=== PATIENT | male | born 1965 | race Caucasian/White ===

== ENCOUNTER 2022-03-14 16:53 | Inpatient (IN) | payer OTHER ==
[2022-03-14] MEDS ORDERED: SODIUM CHLORIDE 0.9% 1,000 ML IV STA (17:01)
[2022-03-14] MEDS ORDERED: ASPIRIN 81 MG PO STA ×2 (17:01→17:26)
[2022-03-14] MEDS ORDERED: LORazepam 2 MG/ML INJ IV STA (17:10)
[2022-03-14] MEDS ORDERED: LIDOCAINE 2% SYG (PF) 100 MG/5 ML IV ONE (17:10)
--- NOTE | 2022-03-14 17:33 | ED ---
Chest Pain HPI - General Source: patient Mode of arrival: ambulatory Limitations: no limitations <Raisa Chaidez - Last Filed: 03/14/22 17:31> <Eleazar Rueda - Last Filed: 03/14/22 17:48> - General Chief Complaint: Chest Pain Stated Complaint: Chest pain,arm numb Time Seen by Provider: 03/14/22 17:01 - History of Present Illness Initial Comments: Patient is a 57-year-old male who presents to the emergency department with a chief complaint of chest pain. Patient states pain started while traveling approximately one hour ago. Describes pain as an aching in the center of his chest with numbness down his left arm. While obtaining HPI EKG was obtained which was evaluated by me and showed evidence of vtach. Patient was then moved to and care was then given to Dr. Rueda. (Raisa Chaidez) - Related Data Home Medications Medication Instructions Recorded Confirmed Lisinopril-Hctz 20-25 mg 1 each PO DAILY 09/14/13 09/16/13 [Zestoretic 20-25] Previous Rx's Medication Instructions Recorded HYDROcodone/APAP 7.5-325MG [[place] 1 - 2 each PO Q6HR PRN #40 tab 09/16/13 7.5] Allergies Allergy/AdvReac Type Severity Reaction Status Date / Time No Known Allergies Allergy Verified 03/14/22 16:59 Review of Systems ROS Other: All systems not noted in ROS Statement are negative. <Raisa Cahidez - Last Filed: 03/14/22 17:31> ROS Other: All systems not noted in ROS Statement are negative. <Eleazar Rueda - Last Filed: 03/14/22 17:48> ROS Statement: Those systems with pertinent positive or pertinent negative responses have been documented in the HPI. EKG Findings - EKG Results: EKG: interpreted by ERMD (EKG showed a wide complex tachycardia rate 244 QRS duration 159 QT/QTc 249/356 a bundle-branch block pattern ST elevation in the anterolateral leads) <Eleazar Rueda - Last Filed: 03/14/22 17:48> Past Medical History Past Medical History: Hypertension History of Any Multi-Drug Resistant Organisms: None Reported Past Surgical History: Cardiac Valve Replacement Additional Past Surgical History / Comment(s): AGE D- VALVE REPLACEMENT Past Anesthesia/Blood Transfusion Reactions: No Reported Reaction Past Psychological History: No Psychological Hx Reported Smoking Status: Current every day smoker Past Alcohol Use History: Daily Past Drug Use History: None Reported <Raisa Chaidez - Last Filed: 03/14/22 17:31> General Exam Limitations: no limitations <Raisa Chaidez - Last Filed: 03/14/22 17:31> General appearance: alert, anxious Head exam: Present: atraumatic, normocephalic, normal inspection Eye exam: Present: normal appearance, PERRL, EOMI. Absent: scleral icterus, conjunctival injection, periorbital swelling ENT exam: Present: normal exam, mucous membranes moist Neck exam: Present: normal inspection, full ROM, other (No stridor JVD or bruits). Absent: tenderness, meningismus, lymphadenopathy Respiratory exam: Present: decreased breath sounds. Absent: respiratory dist ress, wheezes, rales, rhonchi, stridor Cardiovascular Exam: Present: tachycardia. Absent: systolic murmur, diastolic murmur, rubs, gallop, clicks GI/Abdominal exam: Present: soft, normal bowel sounds. Absent: distended, tenderness, guarding, rebound, rigid Extremities exam: Present: normal inspection, full ROM, normal capillary refill. Absent: tenderness, pedal edema, joint swelling, calf tenderness Back exam: Present: normal inspection Neurological exam: Present: alert, oriented X3, CN II-XII intact Psychiatric exam: Present: normal affect, normal mood Skin exam: Present: warm, dry, intact, normal color. Absent: rash <Eleazar Rueda - Last Filed: 03/14/22 17:48> - General Exam Comments Initial Comments: This a well-developed asthenic appearing male who is awake alert oriented 4 (Eleazar Rueda) Course <Eleazar Rueda - Last Filed: 03/14/22 17:48> Vital Signs 03/14/22 03/14/22 16:57 17:29 Temperature 97.6 F Pulse Rate 56 L 112 H Respiratory 22 18 Rate Blood Pressure 99/78 148/110 O2 Sat by Pulse 92 L 95 Oximetry - Reevaluation(s) Reevaluation #1: 03/14/22 17:44 Post chemical conversion showed a sinus tachycardia as read by me as well as the initial EKG rate 109. Interval 196 QRS duration 159 QT since QTC 320/392 left atrial enlargement right bundle-branch block left anterior fascicular block LVH evidence of septal changes which appear to be consistent with ST elevation. (Eleazar Rueda) Chest Pain [facility] <Eleazar Rueda - Last Filed: 03/14/22 17:48> - [facility] Medical decision m[age]-year-old male with a history of heart valve surgery many years ago who was shoveling snow around 2:30 this afternoon he started developing 4/10 severity chest pain retrosternal nonradiating some shortness of breath with it. He was brought into the emergency department by private vehicle a tree as supposedly had a sinus rhythm normal heart rate but upon coming back to the department after EKG was done was found have a heart rate of 244 bpm and appeared to be a Y complex tachycardia. Patient maintained his mentation is awake alert with a blood pressure in the mid to high 90s systolic.. Minimal chest discomfort. He has a former smoker he does have a history of COPD he states. Patient was given 100 mg of IV lidocaine with conversion to a much improved rhythm sinus tachycardia rate of 109 evidence a left atrial enlargement right bundle-branch block left anterior fascicular block evidence of LVH evidence of septal changes STEMI considered. I did discuss case with Dr. Stanton a STEMI was called. The Director Of Special Services is in route. Patient is awake and alert at this time no chest pain no shortness of breath. Labs are pending. My initial examination the patient is awake alert oriented 4 heart rate was tachycardic as above. Lung sounds slightly diminished bilaterally abdomen soft nontender no pulsatile masses extremity breast laterally present and symmetric. Chest x-ray was reviewed by me showing evidence of acute processes. (Eleazar Rueda) Critical Care Time Critical Care Time: Yes Total Critical Care Time: 35 <Eleazar Rueda - Last Filed: 03/14/22 17:48> Critical Care Time: Total care, the initial presentation with my own history and physical examination the patient monitoring the patient. The chemical cardioversion. Multiple reevaluation the patient response to therapy discussion with Dr. Stanton from cardiology discussion with Dr. Hdez. Attempts to review old charting. Documentation the above and initial admission orders (Eleazar Rueda) Disposition <Raisa Chaidez - Last Filed: 03/14/22 17:31> Decision Date: 03/14/22 Decision Time: 17:48 <Eleazar Rueda - Last Filed: 03/14/22 17:48> Clinical Impression: ST elevation myocardial infarction (STEMI), Wide-complex tachycardia, Chest pain Disposition: ADMITTED IP TO THIS HOSP Condition: Fair Referrals: None,Stated [REFERRING] - 1-2 days
[2022-03-14 17:40] LABS: Albumin 4.4 g/dL (3.5-5.0); Calcium 9.3 mg/dL (8.4-10.2); Magnesium 1.7 mg/dL (1.6-2.3); Potassium 3.8 mmol/L (3.5-5.1); Total Bilirubin 0.5 mg/dL (0.2-1.3); Total Protein 6.8 g/dL (6.3-8.2)
--- NOTE | 2022-03-14 17:40 | XR ---
EXAMINATION TYPE: XR chest 1V portable DATE OF EXAM: 03/14/2022 Comparison: None Clinical History: 57-year-old male Chest Pain Findings: Heart upper limits of normal in size. Atherosclerotic arch calcifications. Hyperinflation. Mild stran dy atelectasis right base. No adrian consolidation or pleural effusion. Impression: Borderline heart size. Possible underlying COPD. Otherwise, no definite acute process.
[2022-03-14] MEDS ORDERED: HEPARIN SODIUM 1,000 UN/ML (10ML VL) IVP STA (17:44)
[2022-03-14] MEDS ORDERED: HEPARIN SODIUM 1,000 UN/ML (10ML VL) ONE (17:51)
[2022-03-14] MEDS ORDERED: fentaNYL (PF) 50 MCG/ML 2 ML AMP ONE (17:51)
[2022-03-14] MEDS ORDERED: VERAPAMIL 2.5 MG/ML 2 ML AMP ONE (17:51)
[2022-03-14 17:56] LABS: Basophils # (A) 0.2 k/uL (0-0.2); Basophils % (A) 2 %; Eosinophils # (A) 0.2 k/uL (0-0.7); Eosinophils % (A) 2 %; HCT 47.9 % (39.0-53.0); HGB 15.9 gm/dL (13.0-17.5); Lymphocytes # (A) 2.8 k/uL (1.0-4.8); Lymphocytes % (A) 28 %; MCH 30.5 pg (25.0-35.0); MCHC 33.2 g/dL (31.0-37.0); MCV 91.7 fL (80.0-100.0); Mean Platelet Volume 7.4; Monocytes # (A) 0.6 k/uL (0-1.0); Monocytes % (A) 6 %; Neutrophils # (A) 5.9 k/uL (1.3-7.7); Neutrophils % (A) 60 %; Platelet Count 253 k/uL (150-450); RBC 5.22 m/uL (4.30-5.90); RDW 13.7 % (11.5-15.5); WBC 9.8 k/uL (3.8-10.6)
[2022-03-14 18:01] LABS: INR 0.9 (<1.2); Partial Thromboplastin Time 28.3 sec (22.0-30.0)
[2022-03-14] MEDS ORDERED: fentaNYL (PF) 50 MCG/ML 2 ML AMP IV ONE (18:02)
[2022-03-14] MEDS ORDERED: LIDOCAINE 1% INJ 10MG/ML (30 ML VIAL-PF) SQ ONE (18:02)
[2022-03-14] MEDS ORDERED: VERAPAMIL SYRINGE (5 MG/10 ML) INTRAARTER ONE (18:04)
[2022-03-14] MEDS ORDERED: SODIUM CHLORIDE 0.9% 500 ML 500 ML IV ONE (18:06)
[2022-03-14] MEDS ORDERED: METOPROLOL TARTRATE 5 MG/5 ML VIAL IVP ONE (18:07)
[2022-03-14] MEDS: METOPROLOL TARTRATE 5 MG/5 ML VIAL IVP ONE ×2 (18:08→18:16)
[2022-03-14] MEDS ORDERED: HEPARIN SODIUM 1,000 UN/ML (10ML VL) IV ONE (18:09)
[2022-03-14] MEDS ORDERED: IOPAMIDOL-370 125ML BTL INJ ONE (18:16)
[2022-03-14] MEDS ORDERED: DEXTROSE 5% IN WATER 100 ML with AMIODARONE 150 MG IV ONE (18:16)
[2022-03-14] MEDS ORDERED: RX INFO: IV CONTRAST WAS GIVEN 1 EACH MISC MISCELLANE PRN (18:25)
[2022-03-14] MEDS ORDERED: AMIODARONE 360 MG in DEXTROSE 5% IN WATER 200 ML IV ONE ×2 (18:28)
[2022-03-14] MEDS ORDERED: SODIUM CHLORIDE 0.9% 1,000 ML IV SCH (18:30)
--- NOTE | 2022-03-14 18:34 | P.CARDCATH ---
Date of Procedure: 03/14/22 Description of Procedure: Cardiac Catheterization: The patient is a 57-year-old male who presented with episode of chest discomfort, was found to have wide complex tachycardia consistent with ventricular tachycardia that resolved after receiving IV lidocaine, his underlying rhythm was right bundle branch block with ST segment changes of unclear duration. Patient has a prior history of valvular surgery at the age of 5, details unclear. Recommendations were made regarding cardiac catheterization, the risks and the complications were discussed with the patient who is in full understanding and agreement. Procedure Description: Patient was brought to manager lab in fasting semi-sedated state after receiving Fentanyl and Benadryl achieiving moderate conscious sedated state. Using Xylocaine Anesthesia and Seldinger technique, a 6-Ivorian sheath was introduced in the right radial artery . Subsequently, selective coronary angiography was performed using a 5-Ivorian 3.5 bend Black catheter. Multiple views of the coronary artery including hemiaxial views were obtained. The 5-Ivorian pigatail catheter was used to cross the aortic valve and LVEDP was calculated. Following that, catheter and sheath were removed. Hemostasis was obtained with deployment of TR band . There was no immediate complication. Patient was returned to room in stable condition. Of note, the patient received a total of additional 2000 units of intravenous heparin as well as intra-arterial verapamil. Findings: Left main: This is a short size vessel, bifurcating to LAD and left circumflex, left main has no high-grade stenosis LAD: This is a large size vessel, gives rise to a large diagonal branch very proximally, the second diagonal branch is smaller in caliber, the LAD and its branches have no evidence of high-grade stenosis. The vessel is very tortuous in the proximal segment. Left circumflex: This is a large nondominant vessel giving rise to 3 obtuse marginal branch, the first one is the largest, the left circumflex and its branches have no evidence of high-grade stenosis RCA: This is a large dominant vessel, tortuous, bifurcating distally into PDA and PLV, the RCA and its branches have no evidence of high-grade stenosis Left Ventriculogram: Performed in the 30 TELLO view revealed normal size and function, ejection fraction 60% Hemodynamics: There is no gradient across the aortic valve , LVEDP was 5-10 mmHg Conclusion: 1. No evidence of obstructive CAD 2. Right dominance 3. Normal left ventricle size and systolic function 4. Normal LVEDP Recommendations: I have recommended to start beta melba and amiodarone for now, obtain an echocardiogram with Doppler. Patient will need to be evaluated regarding his arrhythmia. The findings and the recommendations were discussed with the patient and and he is in understanding and agreement Duration of sedation is 20 minutes.
--- NOTE | 2022-03-14 18:40 | P.CRDCN ---
History of Present Illness Consult date: 03/14/22 History of present illness: History of Present Illness: The patient is a 57-year-old male who presents on his birthday with symptoms of chest discomfort that occurred while he was shoveling snow. He had associated dizziness and shortness of breath. He presented to the emergency room and was noted to be in wide-complex tachycardia, sustained ventricle tachycardia that resolved after receiving IV lidocaine. Subsequently to that he was in sinus mechanism with right bundle branch block and ST segment changes of unclear duration. Because of his presentation recommendations were made regarding cardiac catheterization. The patient has a prior history of valvular disease according to him, underwent surgery as a child. He denies any documented history of obstructive CAD, CHF or arrhythmia. He has no chest discomfort on a regular basis. He has some dyspnea on exertion but no typical dizziness or syncope. He has no PND, orthopnea or peripheral edema. He has a prior history of alcohol intake but he stopped a months ago according to him and he has a prior history of hypertension but he is not taking any medication at this time. He is a smoker, nondiabetic. Medications: None at this time Review of Systems: Respiratory: He has some dyspnea on exertion and a history of chronic tobacco use GI: No nausea or vomiting . No history of peptic ulcer disease. No recent GI bleed. : No hematuria or dysuria. Nervous System: No stroke or seizure. Physical Examination: 57-year-old male, alert and oriented no apparent distress, examined in the cardiac catheterization laboratory ,Blood pressure 140/80, Heart rate 102 Head: Normocephalic. Eyes: Sclerae nonicteric. Neck: Good carotid upstroke, no bruit, no jugular venous distention. Lungs: Clear to auscultation. Heart: Regular rate and rhythm, S1-S2, no S3, no rub. Systolic ejection murmur. Abdomen: Soft nontender, positive bowel sounds no organomegaly. Extremities: No edema, intact distal pulses. Labs: Hemoglobin 15.9, white blood cell 9.8, potassium 3.8, BUN 13, creatinine 1.27. Potassium 3.8. Troponin 0.019. Chest x-ray with no acute infiltrate EKG: Initial EKG wide-complex tachycardia consistent with ventricle tachycardia subsequent EKG sinus mechanism with right bundle branch block and nondiagnostic ST segment changes Impression: 1. Sustained ventricular tachycardia 2. Chest discomfort, rule out acute coronary syndrome 3. History of valvular surgery as a child, detail not available 4. Chronic tobacco use 5. History of hypertension 6. Prior history of alcohol intake Plan: 1. Proceed with coronary angiography, the rationale as well as the risks and the complications were discussed with the patient, he was in full agreement and understanding. 2. Add beta melba 3. Obtain an echocardiogram with Doppler 4. Try to obtain records of prior surgery 5. Depending on the results of his testing further recommendations will be made, thank you for this consult we will follow with you. Past Medical History Past Medical History: Hypertension History of Any Multi-Drug Resistant Organisms: None Reported Past Surgical History: Cardiac Valve Replacement Additional Past Surgical History / Comment(s): AGE D- VALVE REPLACEMENT Past Anesthesia/Blood Transfusion Reactions: No Reported Reaction Past Psychological History: No Psychological Hx Reported Smoking Status: Current every day smoker Past Alcohol Use History: Daily Past Drug Use History: None Reported Medications and Allergies Home Medications Medication Instructions Recorded Confirmed Type No Known Home Medications 03/14/22 03/14/22 History Allergies Allergy/AdvReac Type Severity Reaction Status Date / Time No Known Allergies Allergy Verified 03/14/22 17:47 Physical Exam Vitals: Vital Signs Temp Pulse Resp BP Pulse Ox 03/14/22 17:45 102 H 20 148/110 95 03/14/22 17:29 112 H 18 148/110 95 03/14/22 16:57 97.6 F 56 L 22 99/78 92 L Intake and Output 03/14/22 03/14/22 03/14/22 06:59 14:59 22:59 Intake Total 353 Balance 353 Intake: IV 353 Other: Weight 68.039 kg Results 03/14/22 17:15 03/14/22 17:15 Cardiac Enzymes 03/14/22 03/14/22 Range/Units 17:15 17:15 AST 27 (17-59) U/L Troponin I 0.019 (0.000-0.034) ng/mL Coagulation 03/14/22 Range/Units 17:15 PT 10.0 (9.0-12.0) sec APTT 28.3 (22.0-30.0) sec CBC 03/14/22 Range/Units 17:15 WBC 9.8 (3.8-10.6) k/uL RBC 5.22 (4.30-5.90) m/uL Hgb 15.9 (13.0-17.5) gm/dL Hct 47.9 (39.0-53.0) % Plt Count 253 (150-450) k/uL Comprehensive Metabolic Panel 03/14/22 Range/Units 17:15 Sodium 140 (137-145) mmol/L Potassium 3.8 (3.5-5.1) mmol/L Chloride 104 (98-107) mmol/L Carbon Dioxide 25 (22-30) mmol/L BUN 13 (9-20) mg/dL Creatinine 1.27 H (0.66-1.25) mg/dL Glucose 142 H (74-99) mg/dL Calcium 9.3 (8.4-10.2) mg/dL AST 27 (17-59) U/L ALT 22 (4-49) U/L Alkaline Phosphatase 58 (38-126) U/L Total Protein 6.8 (6.3-8.2) g/dL Albumin 4.4 (3.5-5.0) g/dL Current Medications Generic Name Dose Route Start Last Admin Trade Name Freq PRN Reason Stop Dose Admin Aspirin 81 mg 03/15/22 09:00 Aspirin 81 Mg PO DAILY [facility] Atorvastatin Calcium 40 mg 03/15/22 09:00 Atorvastatin 40 Mg Tab PO DAILY [facility] Amiodarone HCl 360 mg/ 200 mls @ 33.333 mls/hr 03/14/22 18:28 Dextrose/Water IV 03/15/22 00:27 .Q6H ONE Protocol 1 MG/MIN Sodium Chloride 1,000 mls @ 75 mls/hr 03/14/22 18:30 Saline 0.9% IV 03/14/22 21:31 .[id number] [facility] Amiodarone HCl 450 mg/ 250 mls @ 16.667 mls/hr 03/15/22 00:30 Dextrose/Water IV 03/15/22 18:29 .Q15H [facility] Protocol 0.5 MG/MIN Metoprolol Tartrate 25 mg 03/14/22 21:00 Metoprolol Tartrate 25 Mg Tab PO BID [facility] Miscellaneous Information 1 each 03/14/22 18:25 Rx Info: Iv Contrast Was Given 1 Each Misc MISCELLANE 03/16/22 18:25 DAILY PRN Per Protocol Intake and Output 03/14/22 03/14/22 03/14/22 06:59 14:59 22:59 Intake Total 353 Balance 353 Intake: IV 353 Other: Weight 68.039 kg Patient Weight 03/15/22 06:59 Weight 68.039 kg 03/14/22 17:15 03/14/22 17:15
[2022-03-14 18:50] LABS: Glucose,Whole Blood 140 mg/dL (70-110)
[2022-03-14] MEDS: lisinopriL 5 MG TAB PO SCH (20:30)
[2022-03-14] MEDS: METOPROLOL TARTRATE 25 MG TAB PO SCH (20:30)
[2022-03-14 23:41] LABS: LDL Cholesterol,Calculated 98.9 mg/dL (0.0-131.0); VLDL Calculation 7.04 mg/dL (5.00-40.00)
[2022-03-15] MEDS: AMIODARONE 450 MG in DEXTROSE 5% IN WATER 250 ML IV SCH ×4 (00:21→14:14)
[2022-03-15] MEDS ORDERED: Potassium Replacement Protocol 1 EACH MISC MISCELLANE PRN (02:35)
[2022-03-15] MEDS ORDERED: POTASSIUM CHLORIDE ER 20 MEQ TAB.ER PO SCH (03:00)
[2022-03-15 05:12] LABS: African American GFR (CKD) >90 (>60 ml/min/1.73 sqM); Anion Gap 2 mmol/L; Blood Urea Nitrogen 10 mg/dL (9-20); Calcium 8.4 mg/dL (8.4-10.2); Carbon Dioxide 25 mmol/L (22-30); Chloride 107 mmol/L (98-107); Glucose 89 mg/dL (74-99); Non-African American GFR(CKD) 83 (>60 ml/min/1.73 sqM); Sodium 134 mmol/L (137-145)
[2022-03-15] MEDS: ASPIRIN 81 MG PO SCH (08:08)
[2022-03-15] MEDS: ATORVASTATIN 40 MG TAB PO SCH (08:08)
[2022-03-15] MEDS: lisinopriL 5 MG TAB PO SCH ×2 (08:08→20:08)
[2022-03-15] MEDS: METOPROLOL TARTRATE 25 MG TAB PO SCH ×2 (08:09→20:08)
--- NOTE | 2022-03-15 11:36 | CA ---
Transthoracic Echo Report Name: Abdi Jansen Age: 57 Gender: M : 1965 Exam Date: 03/15/2022 08:38 Exam Location: [facility] Ht (in): 67 Wt (lb): 130 Ordering Physician: Sukumar Stanton MD Attending/Referring Phys: [employer] Maryam Castillo RDCS Procedure CPT: Indications: vt Cardiac Hx: Technical Quality: Fair Contrast 1: Total Dose (mL): Contrast 2: Total Dose (mL): MEASUREMENTS (Male / Female) Normal Values 2D ECHO LV Diastolic Diameter PLAX 4.2 cm 4.2 - 5.9 / 3.9 - 5.3 cm LV Systolic Diameter PLAX 3.9 cm IVS Diastolic Thickness 1.1 cm 0.6 - 1.0 / 0.6 - 0.9 cm LVPW Diastolic Thickness 1.5 cm 0.6 - 1.0 / 0.6 - 0.9 cm LV Relative Wall Thickness 0.6 LA Volume 45.1 cm??? 18 - 58 / 22 - 52 cm??? DOPPLER AV Peak Velocity 94.5 cm/s AV Peak Gradient 3.6 mmHg LVOT Peak Velocity 81.7 cm/s LVOT Peak Gradient 2.7 mmHg MV Area PHT 3.6 cm??? Mitral E Point Velocity 60.9 cm/s Mitral A Point Velocity 118.4 cm/s Mitral E to A Ratio 0.5 MV Deceleration Time 212.2 ms FINDINGS Left Ventricle Mildly increased septal wall thickness. Basal septal dyskinesis, basal inferior wall hypokinesis. Left ventricular ejection fraction is estimated at 40-45 %. Right Ventricle Normal right ventricular size and function. Right ventricular systolic pressure within normal limits. Right Atrium Mild right atrial dilatation. Left Atrium Normal left atrial size. Mobile intraatrial septum. Mitral Valve Structurally normal mitral valve. Mitral valve thickened. Mild mitral annular calcification. Mild mitral regurgitation. Aortic Valve No aortic valve stenosis or regurgitation. Tricuspid Valve Structurally normal tricuspid valve. Mild tricuspid regurgitation. Pulmonic Valve Trace pulmonic regurgitation. Pericardium No pericardial effusion. Aorta Normal size aortic root and proximal ascending aorta. CONCLUSIONS Mild to moderate LV dysfunction with an ejection fraction of 40-45% Mild mitral regurgitation noted Previewed by: Dr. Parmjit Ochoa MD (Electronically Signed) Final Date: 15 March 2022 11:35
--- NOTE | 2022-03-15 11:51 | PN ---
PROGRESS NOTE HISTORY OF PRESENT ILLNESS: This is a 57-year-old gentleman with history of congenital heart disease, status post surgery at a young age, who presented to [facility] in sustained monomorphic VT with a heart rate of 240 beats per minute, converted to sinus rhythm with lidocaine and went on to have cardiac catheterization by Dr. Stanton, which revealed normal LV systolic function and no evidence of significant obstructive CAD. His troponins have come back elevated at 0.8 and 2. At the time of my evaluation this morning in the ICU, the patient appears comfortable at rest. He did not have further episodes of ventricular or tachyarrhythmias and is free of symptoms. PHYSICAL EXAMINATION: VITAL SIGNS: Afebrile, heart rate is 64 beats per minute, blood pressure is 127/94, and respiratory rate is 18. NECK: There is no jugular venous distention. Carotid upstroke is normal. There is no bruit. CHEST: Reveals good air entry bilaterally. HEART: Reveals first and second heart sounds. No gallop. Right radial artery access site appears normal. EXTREMITIES: Did not reveal any edema. Peripheral pulses are felt. LABS: This morning showed a potassium of 4, creatinine is 1. ASSESSMENT: Sustained monomorphic ventricular tachycardia. PLAN: The patient's cardiac catheterization did not reveal any evidence of significant obstructive CAD. Elevated troponin could be related to sustained VT. The patient is currently on amiodarone and given the fact that patient presented with primary VT, he needs an AICD. I am going to consult EP. I will stop the IV amiodarone once the drip runs out this evening and start him on oral amiodarone. Continue the beta melba. MMODL / IJN: [id number] /
[2022-03-15] MEDS ORDERED: lisinopriL 10 MG TAB PO STA (12:17)
--- NOTE | 2022-03-15 12:45 | P.HPIM ---
History of Present Illness H&P Date: 03/15/22 Chief Complaint: chest pain Patient is a 57-year-old male with a known history of hypertension and history of valve surgery as a child presents to ER with complaints of mid retrosternal chest pain and left arm numbness while he was shoveling snow yesterday. Chest pain associate with shortness of breath and mild dizziness. Patient otherwise denied any complaints of leg weakness. No nausea or vomiting. No cough or sputum production. No fever no chills. No recent illnesses. No recent alcohol abuse. Patient was found to have wide-complex tachycardia and sustained V. tach when he presented to ER. He was given IV lidocaine and subsequently converted to sinus rhythm with rate variable block with ST segment changes. Patient underwent cardiac catheterization which showed no evidence of obstructive CAD. Normal left ventricular size and systolic function. Normal left ventricular end- diastolic pressures. Chest x-ray showed borderline heart size. Possible underlying COPD. Otherwise no definite acute process. Laboratory data showed WBC 9.8 hemoglobin 15.9 and platelets 253 Sodium 140 potassium 3.8 chloride 104 bicarb is 25 BUN 39 creatinine 1.27 and blood sugar is 142. Troponin 0.19, 0.809 and 2.040 LDL 98.9. Review of Systems Constitutional: Patient denies any fever or chills . No generalized weakness or weight loss. Abdomen: Patient denied nausea vomiting and diarrhea and abdominal pain. Cardiovascular: Patient did have chest pain with short of breath no palpitations. Respiratory: patient denied any cough is from production. No shortness of breath Neurologic: Patient denied any numbness or tingling headache. Musculoskeletal: Patient denies any complaints of joint swelling or deformity. Skin: Negative Psychiatric: Negative Endocrine: No heat or cold intolerance. No recent weight gain. Genitourinary: No dysuria or hematuria. All other 14 point ROS negative except the above Past Medical History Past Medical History: Hypertension Additional Past Medical History / Comment(s): Valve replacement 1974 History of Any Multi-Drug Resistant Organisms: None Reported Past Surgical History: Cardiac Valve Replacement Additional Past Surgical History / Comment(s): AGE D- VALVE REPLACEMENT Past Anesthesia/Blood Transfusion Reactions: No Reported Reaction Past Psychological History: No Psychological Hx Reported Smoking Status: Current every day smoker Past Alcohol Use History: Daily Past Drug Use History: None Reported Medications and Allergies Home Medications Medication Instructions Recorded Confirmed Type No Known Home Medications 03/14/22 03/14/22 History Allergies Allergy/AdvReac Type Severity Reaction Status Date / Time No Known Allergies Allergy Verified 03/14/22 17:47 Physical Exam Vitals: Vital Signs Temp Pulse Pulse Resp BP BP Pulse Ox 03/15/22 09:11 93 L 03/15/22 08:00 97.9 F 64 23 127/94 93 L 03/15/22 07:30 70 21 133/93 93 L 03/15/22 07:00 57 L 14 113/87 95 03/15/22 06:30 48 L 13 112/83 95 03/15/22 06:00 56 L 21 120/90 03/15/22 05:30 52 L 12 138/95 03/15/22 05:00 57 L 23 133/99 03/15/22 04:30 58 L 19 138/98 94 L 03/15/22 04:00 97.6 F 53 L 14 134/90 95 03/15/22 03:30 53 L 16 133/98 95 03/15/22 03:00 59 L 19 121/95 93 L 03/15/22 02:45 65 14 121/95 95 03/15/22 02:30 60 11 L 143/108 03/15/22 02:15 60 19 95 03/15/22 02:00 63 17 03/15/22 01:45 63 17 94 L 03/15/22 01:30 65 35 H 141/98 94 L 03/15/22 01:15 61 16 95 03/15/22 01:00 63 20 96 03/15/22 00:30 61 15 95 03/15/22 00:00 98.0 F 62 13 132/84 95 03/14/22 23:30 62 18 95 03/14/22 23:00 64 19 134/97 94 L 03/14/22 22:30 66 13 95 03/14/22 22:00 64 14 94 L 03/14/22 21:30 64 24 127/98 95 03/14/22 21:00 62 16 115/76 95 03/14/22 20:30 67 11 L 115/76 91 L 03/14/22 20:15 65 17 93 L 03/14/22 20:00 97.6 F 66 16 137/112 93 L 03/14/22 19:15 86 12 140/110 90 L 03/14/22 19:00 78 16 137/112 91 L 03/14/22 18:45 98.2 F 89 10 L 143/116 92 L 03/14/22 18:02 97.6 F 62 16 143/116 95 03/14/22 17:45 102 H 20 148/110 95 03/14/22 17:29 112 H 18 148/110 95 03/14/22 16:57 97.6 F 56 L 22 99/78 92 L Intake and Output 03/14/22 03/15/22 03/15/22 22:59 06:59 14:59 Intake Total 653 600 350 Output Total 1025 875 275 Balance -372 -275 75 Intake: IV 653 600 150 Sodium Chloride 0.9% 1, 300 600 150 000 ml @ 75 mls/hr IV . [id number] [facility] Rx#:[id number] Oral 200 Output: Urine 1025 875 275 Other: Voiding Method Urinal Urinal Urinal Weight 68.039 kg 59 kg PHYSICAL EXAMINATION: Patient is lying in the bed comfortably, no acute distress, awake alert and oriented.. HEENT: Normocephalic. Neck is supple. Pupils reactive. Nostrils clear. Oral cavity is moist. Neck reveals no JVD, carotid bruits, or thyromegaly. CHEST EXAMINATION: Trachea is central. Symmetrical expansion. Lung sharma clear to auscultation and percussion. CARDIAC: Normal S1, S2 with no gallops. No murmurs ABDOMEN: Soft. Bowel sounds normal. No organomegaly. No abdominal bruits. Extremities: reveal no edema. No clubbing or cyanosis Neurologically awake, alert, oriented x3 with well-coordinated movements. No focal deficits noted Skin: No rash or skin lesions. Psychiatric: Coperative. Nonsuicidal Musculoskeletal: No joint swelling or deformity. Normal range of motion. Results CBC & Chem 7: 03/14/22 17:15 03/15/22 04:06 Labs: Abnormal Lab Results - Last 24 Hours (Table) 03/14/22 03/14/22 03/14/22 Range/Units 17:15 18:49 19:10 Sodium (137-145) mmol/L Creatinine 1.27 H (0.66-1.25) mg/dL Glucose 142 H (74-99) mg/dL POC Glucose (mg/dL) 140 H (70-110) mg/dL Troponin I (0.000-0.034) ng/mL HDL Cholesterol 66.10 H (40.00-60.00) mg/dL 03/14/22 03/14/22 03/15/22 Range/Units 19:10 21:45 04:06 Sodium 134 L (137-145) mmol/L Creatinine (0.66-1.25) mg/dL Glucose (74-99) mg/dL POC Glucose (mg/dL) (70-110) mg/dL Troponin I 0.809 H* 2.040 H* (0.000-0.034) ng/mL HDL Cholesterol (40.00-60.00) mg/dL Thrombosis Risk Factor Assmnt - DVT/VTE Prophylaxis DVT/VTE Prophylaxis: Pharmacologic Prophylaxis ordered - Choose All That Apply Any of the Below Risk Factors Present?: No Other Risk Factors: No Other congenital or acquired thrombophilia - If yes, enter type in comment: No Thrombosis Risk Factor Assessment Level: Very Low Risk Assessment and Plan Assessment: Chest pain. S/p cardiac catheterization showed no evidence of obstructive CAD. Sustained ventricular tachycardia History of valve surgery as a child Ongoing nicotine addiction History of alcohol use DVT prophylaxis. Plan: Patient is status post cardiac catheterization. No evidence of obstructive coronary disease was noted. For started amiodarone drip. Also started on beta- blockers and lisinopril was added. Patient is being monitored in the MICU. Cardiology is on board. Patient currently denies any complaints of chest pain or pressure. Follow-up closely. Time with Patient: Greater than 30
[2022-03-15] MEDS: AMIODARONE 200 MG TAB PO SCH (18:42)
[2022-03-15] MEDS ORDERED: Magnesium Replacement Protocol 1 EACH MISC MISCELLANE PRN (19:48)
[2022-03-15] MEDS: MAGNESIUM SULFATE-D5W PMX 1 GM in DEXTROSE/WATER 1 100ML.BAG IVPB SCH ×2 (20:08→21:45)
[2022-03-16] MEDS: MAGNESIUM SULFATE-D5W PMX 1 GM in DEXTROSE/WATER 1 100ML.BAG IVPB SCH ×2 (05:18→08:49)
[2022-03-16] MEDS: ATORVASTATIN 40 MG TAB PO SCH (08:50)
[2022-03-16] MEDS: METOPROLOL TARTRATE 25 MG TAB PO SCH ×2 (08:50→21:37)
[2022-03-16] MEDS: AMIODARONE 200 MG TAB PO SCH ×2 (08:50→21:33)
[2022-03-16] MEDS: ASPIRIN 81 MG PO SCH (08:50)
[2022-03-16] MEDS: lisinopriL 5 MG TAB PO SCH ×2 (08:50→21:33)
--- NOTE | 2022-03-16 10:51 | P.PN ---
Subjective Progress Note Date: 03/16/22 History of Present Illness: The patient is a 57-year-old male who presents on his birthday with symptoms of chest discomfort that occurred while he was shoveling snow. He had associated dizziness and shortness of breath. He presented to the emergency room and was noted to be in wide-complex tachycardia, sustained ventricle tachycardia that resolved after receiving IV lidocaine. Subsequently to that he was in sinus mechanism with right bundle branch block and ST segment changes of unclear duration. Because of his presentation recommendations were made regarding cardiac catheterization. The patient has a prior history of valvular disease according to him, underwent surgery as a child. He denies any documented history of obstructive CAD, CHF or arrhythmia. He has no chest discomfort on a regular basis. He has some dyspnea on exertion but no typical dizziness or syncope. He has no PND, orthopnea or peripheral edema. He has a prior history of alcohol intake but he stopped a months ago according to him and he has a prior history of hypertension but he is not taking any medication at this time. He is a smoker, nondiabetic. EKG: Initial EKG wide-complex tachycardia consistent with ventricle tachycardia subsequent EKG sinus mechanism with right bundle branch block and nondiagnostic ST segment changes Medications: None at this time 03/16 Patient underwent cardiac catheterization with Dr. Stanton which revealed normal LV systolic function and no evidence of significant obstructive CAD. Troponins came back elevated at 0.8 and 2. BUN is 10 and creatinine 1, potassium 4.0. Magnesium 1.9. Patient is seen today on the cardiac stepdown unit transferred out of ICU. Patient had no arrhythmias overnight. Patient is currently on amiodarone 4 mg twice daily and Lopressor 25 mg twice daily. Plan is to consult EP for AICD. Echocardiogram reveals mild to moderate LV dysfunction with EF 40-45%, mild mitral regurgitation. Physical Examination: 57-year-old male, alert and oriented no apparent distress, examined in the cardiac catheterization laboratory ,Blood pressure 140/80, Heart rate 102 Head: Normocephalic. Eyes: Sclerae nonicteric. Neck: Good carotid upstroke, no bruit, no jugular venous distention. Lungs: Clear to auscultation. Heart: Regular rate and rhythm, S1-S2, no S3, no rub. Systolic ejection murmur. Abdomen: Soft nontender, positive bowel sounds no organomegaly. Extremities: No edema, intact distal pulses. Impression: 1. Sustained ventricular tachycardia 2. Chest discomfort, rule out acute coronary syndrome 3. History of valvular surgery as a child, detail not available 4. Chronic tobacco use 5. History of hypertension 6. Prior history of alcohol intake Plan: 1. Status post cardiac catheterization showing no evidence of significant obstructive coronary artery disease. 2. Continue patient on amiodarone 400 mg twice daily and Lopressor 25 mg twice daily 3. Consult EP for AICD Nurse practitioner note has been reviewed, I agree with the documented findings and plan of care. Patient was seen and examined. Objective - Vital Signs Vital signs: Vital Signs Temp 97.8 F 03/16/22 08:00 Pulse 71 03/16/22 08:00 Resp 18 03/16/22 08:00 BP 168/105 03/16/22 08:00 Pulse Ox 94 L 03/16/22 08:00 FiO2 Intake & Output 03/15/22 03/16/22 03/16/22 18:59 06:59 18:59 Intake Total 941.394 Output Total 1775 1900 Balance -833.606 -1900 Weight 59.7 kg Intake: IV 260 Sodium Chloride 0.9% 1, 260 000 ml @ 75 mls/hr IV . [id number] [facility] Rx#:[id number] Intake, IV Titration 231.394 Amount Amiodarone 450 mg In 231.394 Dextrose 5% in Water 250 ml @ 0.5 MG/MIN 16.667 mls/hr IV .Q15H [facility] Rx#: [id number] Oral 450 Output: Urine 1775 1900 Other: Voiding Method Urinal Urinal - Labs CBC & Chem 7: 03/14/22 17:15 03/15/22 04:06
[2022-03-17] MEDS: ATORVASTATIN 40 MG TAB PO SCH (10:49)
[2022-03-17] MEDS: ASPIRIN 81 MG PO SCH (10:49)
[2022-03-17] MEDS: lisinopriL 5 MG TAB PO SCH ×2 (10:49→19:27)
[2022-03-17] MEDS: METOPROLOL TARTRATE 25 MG TAB PO SCH (11:30)
--- NOTE | 2022-03-17 11:33 | P.PN ---
Subjective Progress Note Date: 03/17/22 History of Present Illness: The patient is a 57-year-old male who presents on his birthday with symptoms of chest discomfort that occurred while he was shoveling snow. He had associated dizziness and shortness of breath. He presented to the emergency room and was noted to be in wide-complex tachycardia, sustained ventricle tachycardia that resolved after receiving IV lidocaine. Subsequently to that he was in sinus mechanism with right bundle branch block and ST segment changes of unclear duration. Because of his presentation recommendations were made regarding cardiac catheterization. The patient has a prior history of valvular disease according to him, underwent surgery as a child. He denies any documented history of obstructive CAD, CHF or arrhythmia. He has no chest discomfort on a regular basis. He has some dyspnea on exertion but no typical dizziness or syncope. He has no PND, orthopnea or peripheral edema. He has a prior history of alcohol intake but he stopped a months ago according to him and he has a prior history of hypertension but he is not taking any medication at this time. He is a smoker, nondiabetic. EKG: Initial EKG wide-complex tachycardia consistent with ventricle tachycardia subsequent EKG sinus mechanism with right bundle branch block and nondiagnostic ST segment changes Medications: None at this time 03/16 Patient underwent cardiac catheterization with Dr. Stanton which revealed normal LV systolic function and no evidence of significant obstructive CAD. Troponins came back elevated at 0.8 and 2. BUN is 10 and creatinine 1, potassium 4.0. Magnesium 1.9. Patient is seen today on the cardiac stepdown unit transferred out of ICU. Patient had no arrhythmias overnight. Patient is currently on amiodarone 4 mg twice daily and Lopressor 25 mg twice daily. Plan is to consult EP for AICD. Echocardiogram reveals mild to moderate LV dysfunction with EF 40-45%, mild mitral regurgitation. 03/17 Patient's heart rate has been running in the 40s overnight. He is currently on Lopressor 25 mg twice daily and amiodarone 400 mg twice daily. Blood pressure is 135/65. Patient denies having any symptoms overnight. No lightheadedness or dizziness. No chest pain or shortness of breath. Physical Examination: 57-year-old male, alert and oriented no apparent distress, examined in the cardiac catheterization laboratory ,Blood pressure 140/80, Heart rate 102 Head: Normocephalic. Eyes: Sclerae nonicteric. Neck: Good carotid upstroke, no bruit, no jugular venous distention. Lungs: Clear to auscultation. Heart: Regular rate and rhythm, S1-S2, no S3, no rub. Systolic ejection murmur. Abdomen: Soft nontender, positive bowel sounds no organomegaly. Extremities: No edema, intact distal pulses. Impression: 1. Sustained ventricular tachycardia 2. Chest discomfort, rule out acute coronary syndrome 3. History of valvular surgery as a child, detail not available 4. Chronic tobacco use 5. History of hypertension 6. Prior history of alcohol intake Plan: 1. Status post cardiac catheterization showing no evidence of significant obstructive coronary artery disease. 2. Continue patient on amiodarone 400 mg twice daily 3. Discontinue Lopressor due to bradycardia 4. EP consult for AICD Nurse practitioner note has been reviewed, I agree with the documented findings and plan of care. Patient was seen and examined. Objective - Vital Signs Vital signs: Vital Signs Temp 97.5 F L 03/17/22 04:00 Pulse 56 L 03/17/22 04:00 Resp 15 03/17/22 04:00 BP 140/84 03/17/22 04:00 Pulse Ox 95 03/17/22 04:00 FiO2 Intake & Output 03/16/22 03/17/22 03/17/22 18:59 06:59 18:59 Intake Total 540 Output Total 300 250 Balance -300 290 Weight 53 kg Intake: Oral 540 Output: Urine 300 250 Other: Voiding Method Urinal Urinal - Labs CBC & Chem 7: 03/14/22 17:15 03/15/22 04:06
[2022-03-17] MEDS: AMIODARONE 200 MG TAB PO SCH ×2 (11:55→19:27)
[2022-03-17 13:21] VITALS: BMI 18.3
[2022-03-18] MEDS: ASPIRIN 81 MG PO SCH (09:32)
[2022-03-18] MEDS: AMIODARONE 200 MG TAB PO SCH ×2 (09:32→19:56)
[2022-03-18] MEDS: ATORVASTATIN 40 MG TAB PO SCH (09:32)
[2022-03-18] MEDS: lisinopriL 5 MG TAB PO SCH ×2 (09:32→19:56)
[2022-03-18 13:11] LABS: Calcium 9.2 mg/dL (8.4-10.2); Magnesium 1.8 mg/dL (1.6-2.3); Potassium 4.8 mmol/L (3.5-5.1)
[2022-03-18 13:13] LABS: Basophils # (A) 0.1 k/uL (0-0.2); Basophils % (A) 1 %; Eosinophils # (A) 0.3 k/uL (0-0.7); Eosinophils % (A) 5 %; HCT 49.2 % (39.0-53.0); HGB 16.9 gm/dL (13.0-17.5); Lymphocytes # (A) 1.8 k/uL (1.0-4.8); Lymphocytes % (A) 27 %; MCH 31.4 pg (25.0-35.0); MCHC 34.4 g/dL (31.0-37.0); MCV 91.3 fL (80.0-100.0); Mean Platelet Volume 7.6; Monocytes # (A) 0.4 k/uL (0-1.0); Monocytes % (A) 6 %; Neutrophils % (A) 59 %; Platelet Count 238 k/uL (150-450); RBC 5.39 m/uL (4.30-5.90); WBC 6.8 k/uL (3.8-10.6)
--- NOTE | 2022-03-18 14:40 | P.PN ---
Subjective HPI: This patient presented to the hospital with episode of chest discomfort and had wide complex tachycardia suggestive of ventricular tachycardia and before the patient was shocked soon after receiving IV lidocaine he converted to sinus rhythm. Coronary angiogram revealed no significant obstructive CAD with a right dominant system normal end-diastolic pressures. Echocardiogram revealed ejection fraction in the 40-45% range. Patient has had again short runs of nonsustained V. tach while he was here in the hospital. I have advised that he should have a LifeVest and eventual EP study and also probable ICD. His electrolytes are normal. I have advised him the rationale for LifeVest. Advised that he should refrain from drinking alcohol altogether. We will check his potassium and magnesium level again today. He has been on intravenous amiodarone and now am recommending 200 mg amiodarone twice a day along with metoprolol tartrate 12.5 mg twice a day and we will check his electrolytes. I'm recommending that he should have a LifeVest prior to discharge and follow-up with his primary leaf conditioner Dr. Stanton and also rotating equipment specialist. PHYSICIAL EXAM: Vital signs are stable blood pressure is 150/70 pulse rate is about 60/m sinus no JVD S1-S2 heard normally short systolic murmur lungs reveal diminished air entry bilateral lung sharma abdomen is soft nontender lower extremities reveal diminished pulses central nervous system grossly no focal deficits.. IMPRESSION: 1. Sustained ventricular tachycardia. 2. Nonischemic cardiomyopathy. 3. Previous history of alcoholism. 4. Smoking and COPD. 5. . RECOMMENDATIONS: Continue current medications check electrolytes amiodarone plus metoprolol tartrate LifeVest and possible discharge in 24 hours. Discussed with the patient in detail the risk benefits options and rationale for LifeVest. Advised the patient refrain from alcohol and caffeine and tobacco. Objective - Vital Signs Vital signs: Vital Signs Temp 97.9 F 03/18/22 12:00 Pulse 56 L 03/18/22 12:00 Resp 17 03/18/22 12:00 BP 152/76 03/18/22 12:00 Pulse Ox 94 L 03/18/22 12:00 FiO2 Intake & Output 03/17/22 03/18/22 03/18/22 18:59 06:59 18:59 Intake Total 240 540 180 Balance 240 540 180 Weight 53 kg Intake: Oral 240 540 180 Other: Voiding Method Urinal Urinal Urinal # Voids 1 2 - Labs CBC & Chem 7: 03/18/22 12:37 03/18/22 12:37 Labs: Abnormal Lab Results - Last 24 Hours (Table) 03/18/22 Range/Units 12:37 Carbon Dioxide 31 H (22-30) mmol/L Creatinine 1.29 H (0.66-1.25) mg/dL
[2022-03-18] MEDS: METOPROLOL TARTRATE 12.5 MG TAB PO SCH (19:56)
[2022-03-19] MEDS: METOPROLOL TARTRATE 12.5 MG TAB PO SCH (08:52)
[2022-03-19] MEDS: ATORVASTATIN 40 MG TAB PO SCH (08:52)
[2022-03-19] MEDS: ASPIRIN 81 MG PO SCH (08:52)
[2022-03-19] MEDS: AMIODARONE 200 MG TAB PO SCH (08:52)
[2022-03-19] MEDS: lisinopriL 5 MG TAB PO SCH (08:52)
--- NOTE | 2022-03-19 11:41 | P.PN ---
Subjective Progress Note Date: 03/18/22 Objective - Vital Signs Vital signs: Vital Signs Temp 98.1 F 03/19/22 08:00 Pulse 67 03/19/22 08:00 Resp 18 03/19/22 08:00 BP 143/91 03/19/22 08:00 Pulse Ox 96 03/19/22 08:08 FiO2 Intake & Output 03/18/22 03/19/22 03/19/22 18:59 06:59 18:59 Intake Total 1080 480 240 Balance 1080 480 240 Intake: Oral 1080 480 240 Other: Voiding Method Urinal Urinal Urinal # Voids 2 3 - Labs CBC & Chem 7: 03/18/22 12:37 03/18/22 12:37 Labs: Abnormal Lab Results - Last 24 Hours (Table) 03/18/22 Range/Units 12:37 Carbon Dioxide 31 H (22-30) mmol/L Creatinine 1.29 H (0.66-1.25) mg/dL
[2022-03-19 12:59] VITALS: BP 153/73; PULSE 57; RESP 16; TEMP 97.9
--- NOTE | 2022-03-19 18:24 | PN ---
PROGRESS NOTE SUBJECTIVE: This is a gentleman with noncritical CAD and ventricular tachycardia, who was placed on amiodarone bolus and drip. He is also on a small dose of beta-melba. Rhythm strips suggest no significant ectopy in the last 24 hours. He has a LifeVest. He is going to be discharged on a LifeVest. Advised to refrain from alcohol and tobacco. OBJECTIVE: VITAL SIGNS: Stable. NECK: No JVD. HEART: S1 and S2 heard normally. Short systolic murmur noted. LUNGS: Reveal bilateral diminished air entry. ABDOMEN: Unchanged. LOWER EXTREMITIES: Unchanged. ASSESSMENT AND PLAN: The patient has history of smoking, chronic obstructive pulmonary disease, and alcoholism, which he says he has quit a month ago. He has noncritical coronary artery disease and ventricular tachycardia sustained with symptoms. He will be on a LifeVest and will be seeing Dr. Stanton in 1 week. Discharge instructions were given. MMODL / IJN: [id number] /
[2022-03-19] MEDS ORDERED: lisinopriL 10 MG TAB PO SCH (21:00)
== END 2022-03-19 13:29 | disposition home or self-care (01) | DRG 287 ==
LOC: EC 16:53 → 2SICU 17:49 → 3SCARD 03-16 07:10
PROVIDERS: ADMIT Internal Medicine; ATTEND Internal Medicine
PROC: B2151ZZ Fluoroscopy of Left Heart using Low Osmolar Contrast (ICD-10-PCS; principal; 2022-03-14 17:44)
PROC: 4A023N7 Measurement of Cardiac Sampling and Pressure, Left Heart, Percutaneous Approach (ICD-10-PCS; principal; 2022-03-14 17:44)
PROC: B2111ZZ Fluoroscopy of Multiple Coronary Arteries using Low Osmolar Contrast (ICD-10-PCS; principal; 2022-03-14 17:44)
DX: I47.20 Ventricular tachycardia, unspecified (principal); I42.8 Other cardiomyopathies; J44.9 Chronic obstructive pulmonary disease, unspecified; I45.2 Bifascicular block; I25.10 Atherosclerotic heart disease of native coronary artery without angina pectoris; I11.9 Hypertensive heart disease without heart failure; F17.200 Nicotine dependence, unspecified, uncomplicated; R77.8 Other specified abnormalities of plasma proteins; F10.21 Alcohol dependence, in remission; Z95.2 Presence of prosthetic heart valve; Z79.899 Other long term (current) drug therapy; Z28.310 Unvaccinated for COVID-19
CPT/HCPCS: 36415; 71045; 80048; 80053; 80061; 83735; 84484; 85025; 85610; 85730; 93005; 93306; 93458; 94760; 96374; 96375; 99291

== ENCOUNTER → 2022-04-24 | Outpatient (CLI) | payer OTHER ==
--- NOTE | 2022-04-25 08:22 | US ---
EXAMINATION TYPE: US arterial LE single level DATE OF EXAM: 04/24/2022 3:41 PM CLINICAL HISTORY: I73.9 PERIPHERAL VASC DISEASE. Bilateral cold and purple feet. Thickened toe nails . History of: Smoker: Current Smoker Hypertension: Yes Diabetic: No Hyperlipidemia: No TIA/CVA: No Previous Vascular Surgery: No CAD: Yes MO: Yes Vascular Ulcers: No Claudication: No Gangrene: No Doppler Waveforms: Right: Biphasic Left: Biphasic Pressure Gradients: Right Brachial Pressure: 156 Left Brachial Pressure: 149 Ankle-Brachial Indices: Right: 1.03 Left: 1.11 Toe Brachial Indices: Right: N/A Left: N/A IMPRESSION: Normal bilateral MARIANNA values. Could not obtained pressures in the bilateral toes. Signifi cant arterial stenosis needs to be considered in the bilateral feet. Correlate clinically and follow- up advised.
== END | disposition home or self-care (01) ==
LOC: RADUSWWP 14:57
PROVIDERS: ATTEND Family Medicine
DX: I73.9 Peripheral vascular disease, unspecified (principal); I10 Essential (primary) hypertension; I25.10 Atherosclerotic heart disease of native coronary artery without angina pectoris; F17.210 Nicotine dependence, cigarettes, uncomplicated
CPT/HCPCS: 93922

== ENCOUNTER → 2022-06-13 | Outpatient (CLI) | payer OTHER ==
--- NOTE | 2022-06-13 12:41 | CT ---
EXAMINATION TYPE: CT iac wo con DATE OF EXAM: 06/13/2022 COMPARISON: None HISTORY: tinnitus CT DLP: 142.7mGycm Automated exposure control for dose reduction was used. FINDINGS: The external auditory canals are patent bilaterally. Mastoid air cells show no evidence of abnormal opacification bilaterally. The middle ear ossicles are symmetric and unremarkable. There is no evidence of suspicious surrounding soft tissue density to suggest cholesteatoma. The scutum is preserved bilaterally. The cochlea and the semicircular canals are symmetric and unremarkable. Vestibular aqueduct and inte rnal carotid canal appear unremarkable. Temporomandibular joints are maintained bilaterally. There is asymmetry of the prepontine cistern more prominent on the left. This potentially could be po sitional. Congenital etiology or arachnoid cyst and excluded by noncontrast CT scan. A prominent cist dwain magna noted. IMPRESSION: 1. Recommend MRI of the IACs to assess asymmetry of the prepontine cistern.
== END | disposition home or self-care (01) ==
LOC: RADCTMAIN 11:21
PROVIDERS: ATTEND Otolaryngology
DX: H70.91 Unspecified mastoiditis, right ear (principal)
CPT/HCPCS: 70480

== ENCOUNTER → 2022-07-18 | Outpatient (CLI) | payer OTHER ==
--- NOTE | 2022-07-19 10:36 | MR ---
EXAMINATION TYPE: MR brain and iac wo/w con DATE OF EXAM: 07/18/2022 COMPARISON: None HISTORY: Abnormal CT, Hearing Loss mostly Rt side TECHNIQUE: Multiplanar, multisequence images of the brain and brainstem is performed without and with IV contras t, utilizing 6 mL intravenous Gadavist . FINDINGS: The ventricles, basal cisterns and sulci over the convexities are within normal limits and there is n o mass effect or shift of midline structures. There are multiple small remote lacunar infarcts in the basal ganglia and within the cam. Based on d iffusion-weighted imaging there is no diffusion restriction or acute ischemic event. There are a few scattered nonspecific white matter abnormalities consistent with chronic ischemic whi te matter change. Cerebellar pontine angles appear normal and there is no cerebellar pontine angle mass or pathological enhancement. The internal auditory canals and contents are normal as well. Intraorbital contents appear normal and symmetric. Visualized paranasal sinuses and mastoid air cells are well aerated. IMPRESSION: 1. No abnormality of the internal auditory canals. 2. 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 3. Few scattered nonspecific chronic white matter changes 4. No acute ischemic changes.
== END | disposition home or self-care (01) ==
LOC: RADMRIMAIN 21:33
PROVIDERS: ATTEND Otolaryngology
DX: G93.89 Other specified disorders of brain (principal); R90.82 White matter disease, unspecified; R93.0 Abnormal findings on diagnostic imaging of skull and head, not elsewhere classified; H91.91 Unspecified hearing loss, right ear; Z86.73 Personal history of transient ischemic attack (TIA), and cerebral infarction without residual deficits
CPT/HCPCS: 70553; A9585

== ENCOUNTER 2022-08-07 09:55 | Day surgery (SDC) | payer OTHER ==
[~2022-08-07 09:55] MED LIST: LACTATED RINGERS 1,000 ML IV SCH; SODIUM CHLORIDE 0.9% 1,000 ML IV SCH
[2022-08-07] MEDS ORDERED: LIDOCAINE 1% INJ 10MG/ML (20 ML MDV) ONE (10:24)
[2022-08-07 10:58] LABS: African American GFR (CKD) >90 (>60 ml/min/1.73 sqM); Anion Gap 11 mmol/L; Blood Urea Nitrogen 14 mg/dL (9-20); Calcium 9.5 mg/dL (8.4-10.2); Carbon Dioxide 29 mmol/L (22-30); Chloride 99 mmol/L (98-107); Glucose 87 mg/dL (74-99); Non-African American GFR(CKD) 81 (>60 ml/min/1.73 sqM); Sodium 139 mmol/L (137-145)
[2022-08-07 11:00] LABS: Potassium 4.4 mmol/L (3.5-5.1)
[2022-08-07] MEDS ORDERED: NEOSTIGMINE 1 MG/ML 10 ML VIAL ONE (11:23)
[2022-08-07] MEDS ORDERED: GLYCOPYRROLATE 0.2 MG/ML 2 ML VIAL ONE (11:23)
[2022-08-07] MEDS ORDERED: LIDOCAINE 2% INJ 20 MG/ML (2 ML VIAL) ONE (11:23)
[2022-08-07] MEDS ORDERED: ISOPROTERENOL 250 MCG/1.25 ML SYR IV ONE (11:23)
[2022-08-07] MEDS ORDERED: ROCURONIUM 10 MG/ML (5 ML VIAL) IV ONE (11:23)
[2022-08-07] MEDS ORDERED: MIDAZOLAM 2 MG/2 ML VIAL ONE (11:23)
[2022-08-07] MEDS ORDERED: SUCCINYLCHOLINE CHLORIDE 200 MG/10 ML VIAL IV ONE (11:23)
[2022-08-07] MEDS ORDERED: fentaNYL (PF) 50 MCG/ML 2 ML AMP ONE (11:23)
[2022-08-07] MEDS ORDERED: PROPOFOL 10 MG/ML 20 ML VIAL IV ONE (11:23)
[2022-08-07] MEDS ORDERED: ONDANSETRON 4 MG/2 ML VIAL ONE (11:23)
[2022-08-07] MEDS ORDERED: PHENYLEPHRINE-0.9% NACL SYG 1,000 MCG/10 ML SYRINGE ONE (11:23)
[2022-08-07] MEDS ORDERED: METOPROLOL TARTRATE 5 MG/5 ML VIAL IVP ONE (11:23)
[2022-08-07 11:29] LABS: Basophils % (A) 1 %; Eosinophils # (A) 0.3 k/uL (0-0.7); Eosinophils % (A) 5 %; HCT 40.1 % (39.0-53.0); HGB 13.3 gm/dL (13.0-17.5); Lymphocytes # (A) 2.4 k/uL (1.0-4.8); Lymphocytes % (A) 36 %; MCH 31.1 pg (25.0-35.0); MCHC 33.2 g/dL (31.0-37.0); MCV 93.8 fL (80.0-100.0); Mean Platelet Volume 7.6; Monocytes # (A) 0.5 k/uL (0-1.0); Monocytes % (A) 7 %; Neutrophils # (A) 3.2 k/uL (1.3-7.7); Neutrophils % (A) 48 %; Platelet Count 201 k/uL (150-450); RBC 4.27 m/uL (4.30-5.90); RDW 13.5 % (11.5-15.5); WBC 6.6 k/uL (3.8-10.6)
[2022-08-07] MEDS ORDERED: LIDOCAINE 1% INJ 10MG/ML (20 ML MDV) SQ ONE (11:51)
[2022-08-07] MEDS ORDERED: HEPARIN SODIUM (1,000 UNIT/ML) 1,000 UNIT in SODIUM CHLORIDE 0.9% 1,000 ML IRRIGATION ONE (12:57)
[2022-08-07] MEDS ORDERED: LACTATED RINGERS 1,000 ML IV ONE (16:06)
[2022-08-07] MEDS ORDERED: ACETAMINOPHEN TAB 325 MG TAB PO PRN (17:04)
[2022-08-07] MEDS ORDERED: ACETAMINOPHEN IV (For NPO) 1,000 MG in EMPTY BAG 1 BAG IVPB ONE (17:04)
--- NOTE | 2022-08-07 17:42 | P.EPPROC ---
- EP Procedure Note Electrophysiology Procedure Note: Diagnosis Sustained monomorphic ventricular tachycardia History of VSD status post open heart surgery and repair many years back as a child Cardiac MRI reveals scarring of the septum related to VSD repair, reduced RV systolic function His clinical VT was upright in the inferior leads and aVL, left bundle branch block type with a late transition between V3 and V4 and were negative in aVR than in aVL No obstructive coronary artery disease by cardiac catheterization Symptomatic with presyncope, underlying right bundle branch block pattern on twelve-lead EKG Results Scar based VT ablation/ pace mapping based VT ablation Posterior RV wall scar mapped RF ablation from the tricuspid annulus to the VSD repair scar, mid RV Procedure Patient was brought to the EP lab in a fasting state. Written informed consent was obtained prior to the procedure. The right and left groins were prepped prepped and draped as per protocol. Venous sheaths were placed in the right left femoral veins. Diagnostic cath was placed in the high right atrium, Emile sinus, His bundle area and right ventricle Sinus cycle length 740 ms, IA interval 172 ms, QRS 154 ms right bundle branch block pattern and QT interval 490 ms AH 125 ms and HV interval 39 ms Sinus node recovery times at 600, 504 100 ms were 1214 ms, 924 ms and 1061 ms. Corresponding corrected sinus node recovery times mildly prolonged AV node Wenckebach block 310 ms VA Wenckebach block greater than 700 ms AV node ERP 600\3:30 milliseconds Ventricular extra stimulation was performed With double extrastimuli@600/240/2:30 milliseconds from the RV, sustained monomorphic ventricular tachycardia was induced The patient was hypotensive to 80 mmHg Burst pacing result in termination of the tachycardia This VT had a left bundle branch block morphology with delta waves-like configuration at the onset and a QRS width of 190 ms consistent with deep myocardial/epicardial VT Transition in lead 3 Biphasic QRS is in 23 and aVF and upright in lead 1 and aVL However his clinical ventricular tachycardia had upright QRS is in the inferior leads. The QRS is on this inducible VT were biphasic in the inferior leads (RS pattern) Thereafter mapping of the right ventricle was performed Intracardiac echo mapping was performed to VSD repair area was identified. The pericardium was thickened from his open heart surgery Right ventricle was mapped Voltage mapping was performed in the right ventricle Scars noted predominantly in the mid RV posteriorly extending up into the septum where the VSD repair was performed Discomfort extended from the tricuspid annulus posteriorly to the VSD surgery site, mid RV body posteriorly Late potentials is soft Thereafter pace mapping was performed and the best pace map was was 79% concordance However his VT was clearly epicardial in origin and therefore this level of concordance was quite acceptable Thereafter isochronal mapping during ventricular extra stimulation was performed and the functional isthmii related to the scar were identified The functional isthmus and the best pace map for the clinical VT coincided in location Initially the diagnostic EP study was performed under conscious sedation with the patient was moving around a lot and therefore to be able to perform 3-D electro-anatomic mapping, general anesthesia was performed Under general anesthesia he could not induce the clinical VT and therefore an activation map of the VT could not be performed after the scar had been i dentified and the functional isthmii had been identified Therefore we proceeded with ablation of the lower end of the scar cutting across the functional isthmii and along the sites of the best pace A complete RF line was block was made from the tricuspid annulus to the site of VSD repair that stacked on intracardiac echo Good contact force was obtained and about a peripheral warts was used A complete line of block was made Intracardiac echo did not reveal any pericardial effusion at the end of the procedure. WAS removed at the end of the procedure. The veins was sealed with Vascade Ware catheter was Patient tolerated the procedure well without any acute complications
--- NOTE | 2022-08-07 17:46 | P.HPCAR ---
History of Present Illness This is Dr. Ashley dictating an H/P on this patient The patient was interviewed and examined IMPRESSION / ASSESSMENT: Sustained monomorphic VT VSD repair related scar Abnormal RV, abnormal cardiac MRI Normal coronary arteries Right bundle branch block pattern Open-heart surgery for VSD repair as a child Patient presented to the emergency room previously with a wide complex tachycardia that was treated with IV lidocaine, sustained monomorphic VT, symptomatic PLAN: Diagnoses EP study mapping of the right ventricle and ventricular tachycardia Risk stratification for sudden cardiac HPI Patient was shoveling snow when he started experiencing presyncope and he came to the ER was found to have a wide complex tachycardia Received IV lidocaine resulting in termination of the VT Coronary angiography was normal right bundle branch block pattern 12-lead EKG Later he had an MRI of the heart which showed abnormal right ventricle with evidence of scarring related to the VSD repair The original wide complex tachycardia at a ventricular rate of 244 beats a minute left bundle branch block type, transition between V3-V4 QRS is 1 upright in the inferior leads, left bundle branch block pattern ROS: No fever chills or rigors, no cough, phlegm or expectoration, no nausea, vomiting or diarrhea, no hematuria, dysuria, no musculoskeletal complaints, no strokes or seizures, no skin lesions. EXAMINATION: Afebrile pulse rate in the 60s blood pressure 135/72 mmHg Heart sounds are normal breath sounds are clear Extremities warm no edema REVIEW OF LABS, ECG & MEDICAL DATA WHITE count normal, hemoglobin normal Normal sodium and potassium Normal renal function Physical Exam Vitals: Vital Signs Temp Pulse Pulse Resp BP Pulse Ox 08/07/22 17:38 53 L 14 146/97 99 08/07/22 17:23 96.8 F L 61 14 135/72 100 08/07/22 10:18 96.8 F L 68 18 156/91 97 Intake and Output 08/07/22 08/07/22 08/07/22 06:59 14:59 22:59 Intake Total 1650 400 Output Total 600 Balance 1650 -200 Intake: IV 1650 400 Output: Urine 600 Other: Weight 57.6 kg Past Medical History Past Medical History: COPD, Hypertension, Osteoarthritis (OA) Additional Past Medical History / Comment(s): Valve replacement 1974, hx. rapid heart rate, see Dr. Ashley H & P History of Any Multi-Drug Resistant Organisms: None Reported Past Surgical History: Cardiac Valve Replacement, Orthopedic Surgery Additional Past Surgical History / Comment(s): AGE D- VALVE REPLACEMENT, left shoulder arthroscopy Past Anesthesia/Blood Transfusion Reactions: No Reported Reaction Smoking Status: Current every day smoker Physical Examination Vital Signs Temp Pulse Pulse Resp BP Pulse Ox 08/07/22 17:38 53 L 14 146/97 99 08/07/22 17:23 96.8 F L 61 14 135/72 100 08/07/22 10:18 96.8 F L 68 18 156/91 97 Intake and Output 08/07/22 08/07/22 08/07/22 06:59 14:59 22:59 Intake Total 1650 400 Output Total 600 Balance 1650 -200 Intake: IV 1650 400 Output: Urine 600 Other: Weight 57.6 kg Results 08/07/22 10:10 08/07/22 10:10 CBC 08/07/22 Range/Units 10:10 WBC 6.6 (3.8-10.6) k/uL RBC 4.27 L (4.30-5.90) m/uL Hgb 13.3 (13.0-17.5) gm/dL Hct 40.1 (39.0-53.0) % Plt Count 201 (150-450) k/uL Comprehensive Metabolic Panel 08/07/22 Range/Units 10:10 Sodium 139 (137-145) mmol/L Potassium 4.4 (3.5-5.1) mmol/L Chloride 99 (98-107) mmol/L Carbon Dioxide 29 (22-30) mmol/L BUN 14 (9-20) mg/dL Creatinine 1.03 (0.66-1.25) mg/dL Glucose 87 (74-99) mg/dL Calcium 9.5 (8.4-10.2) mg/dL Current Medications Generic Name Dose Route Start Last Admin Trade Name Freq PRN Reason Stop Dose Admin Acetaminophen 650 mg 08/07/22 17:04 Acetaminophen Tab 325 Mg Tab PO 09/06/22 17:05 Q6HR PRN Mild Pain (Scale 1 to 3) Aspirin 81 mg 08/08/22 09:00 Aspirin 81 Mg PO 09/07/22 09:01 DAILY [facility] Lisinopril 10 mg 08/07/22 21:00 Lisinopril 10 Mg Tab PO 09/06/22 21:01 BID [facility] Metoprolol Tartrate 12.5 mg 08/07/22 21:00 Metoprolol Tartrate 12.5 Mg Tab PO 09/06/22 21:01 BID [facility] Sodium Chloride 12 ml 08/07/22 17:04 Sodium Chloride 0.9% Flush 10 Ml Syringe IV 09/06/22 17:05 Q12HR PRN Line Flush Intake and Output 08/07/22 08/07/22 08/07/22 06:59 14:59 22:59 Intake Total 1650 400 Output Total 600 Balance 1650 -200 Intake: IV 1650 400 Output: Urine 600 Other: Weight 57.6 kg Patient Weight 08/08/22 06:59 Weight 57.6 kg 08/07/22 10:10 08/07/22 10:10
--- NOTE | 2022-08-07 17:49 | P.PRLE ---
RE: Abdi Jansen Dear Eve Rodriges was admitted to the hospital with presyncope related to a wide complex tachycardia consistent with ventricular tachycardia He was treated with IV lidocaine at that time Coronary arteries are normal He has a history of VSD repair and an abnormal cardiac MRI with a enlarged right ventricle. Evidence of scar in the septum related to VSD repair He underwent a diagnostic EP study today which revealed #1. An epicardial ventricular tachycardia that was easily induced underlying sedation. VT rate was greater than 230 beats a minute originating from the right ventricle, epicardial #2 he also had spontaneously occurring atrial tachycardia with RVR The VT was ablated endocardially Since his head open-heart surgery it would be problematic entering his pericardium to perform an epicardial ablation The procedure went very well without any acute complications However given the abnormality in his cardiac MRI in the right ventricle as well as such fast epicardial VT I would be discussing implantation of an ICD Thank you for entrusting me with the care of the patient Warm regards Sincerely Cj Ashley
[2022-08-07] MEDS: METOPROLOL TARTRATE 12.5 MG TAB PO SCH (20:37)
[2022-08-07] MEDS: lisinopriL 10 MG TAB PO SCH (20:37)
[2022-08-08 03:05] VITALS: RESP 16
--- NOTE | 2022-08-08 06:36 | P.DS ---
Providers Attending physician: Cj Ashley Primary care physician: [facility] Course: Patient is resting comfortably in bed No dizziness no chest pain no respiratory distress Examination blood pressures 117 80 pulse 69 beats afebrile Normal heart sounds no rub no gallop or murmur No JVD abdomen abdomen soft Clear lungs no rhonchi no crackles His groins of healed well no hematoma no swelling no tenderness Impression Spontaneous sustained VT associated with presyncope in the recent past Easily inducible ventricular tachycardia originating from the right ventricle, epicardial VT Status post ablation, RV posterior wall, mid RV Abnormal cardiac MRI with RV scar and dilation History of open heart surgery status post VSD repair as a child (congenital heart disease with abnormal right ventricular structure and function) Diagnostic EP study also revealed mild Sick Sinus Syndrome Spontaneous episodes of atrial tachycardia with RVR. This was not tolerated for mapping/ablation Suggest Continue beta blockers continue current medications Baby aspirin for 4 weeks Consideration for dual-chamber ICD implant Discharge home today and follow Dr. Stanton Plan - Discharge Summary Discharge Rx Participant: Yes New Discharge Prescriptions: Continue lisinopriL [Zestril] 10 mg PO BID #30 tab Aspirin 81 mg PO DAILY Metoprolol Tartrate [Lopressor] 12.5 mg PO BID #60 tab Discharge Medication List Metoprolol Tartrate [Lopressor] 12.5 mg PO BID #60 tab 03/18/22 [Rx] lisinopriL [Zestril] 10 mg PO BID #30 tab 03/19/22 [Rx] Aspirin 81 mg PO DAILY 08/05/22 [History] Follow up Appointment(s)/Referral(s): Sukumar Stanton MD [STAFF PHYSICIAN] - 1 Week Activity/Diet/Wound Care/Special Instructions: Post EP study - Ablation instructions 1. Keep access sites dry for 2 days. 2. No heavy lifting or straining for 2 days. 3. Avoid bending the hips repeatedly for 2 days. 4. You may go up and down stairs slowly Call if the following is noted 1. Bleeding, increasing swelling or pain at the access sites. 2. Increasing chest discomfort, especially upon taking a deep breath. 3. Increasing shortness of breath, at rest or with exertion. 4. Undue cough / phlegm 5. Difficulty or pain while swallowing. 6. Pain or change in color in the extremities. 7. Fever, chills, rigors. 8. Increasing headache or neurologic symptoms. 9. Dizziness, fainting, palpitations Discharge Disposition: HOME SELF-CARE
[2022-08-08] MEDS: lisinopriL 10 MG TAB PO SCH (08:00)
[2022-08-08] MEDS: METOPROLOL TARTRATE 12.5 MG TAB PO SCH (08:00)
[2022-08-08 08:43] VITALS: BP 145/73; PULSE 61; TEMP 97.8
[2022-08-08] MEDS ORDERED: ASPIRIN 81 MG PO SCH (09:00)
== END 2022-08-08 10:25 | disposition home or self-care (01) ==
LOC: CATHEP 09:55 → 6NMEDSUR 17:12 → CATHEP 08-08 10:25
PROVIDERS: ATTEND Internal Medicine Clinical Cardiac Electrophysiology
DX: R55 Syncope and collapse (principal); I45.10 Unspecified right bundle-branch block; I49.5 Sick sinus syndrome; I47.1 Supraventricular tachycardia; I47.20 Ventricular tachycardia, unspecified; Z98.890 Other specified postprocedural states
CPT/HCPCS: 93662; 93654; 86900; 86901; 80048; 85025; 86850; C1759; C1894; C1769; C1760; C1766; C1730 ×3; C1731; C1732; J2250; J0330; J2710; J2405; J2001 ×2; J3010; J1644; J2370; J2704

== ENCOUNTER 2022-11-13 07:34 | Day surgery (SDC) | payer OTHER ==
[2022-11-07 12:58] VITALS: BMI 20.3
[~2022-11-13 07:34] MED LIST changes: -LACTATED RINGERS 1,000 ML IV SCH
[2022-11-13] MEDS ORDERED: SODIUM CHLORIDE 0.9% 500 ML 500 ML IV ONE ×2 (07:44→14:35)
[2022-11-13 08:00] VITALS: RESP 16
[2022-11-13] MEDS ORDERED: ceFAZolin 1 GM in SODIUM CHLORIDE 0.9% IRRIG BTL 250 ML IRRIGATION PRN (08:00)
[2022-11-13 08:08] LABS: Basophils % (A) 0 %; Eosinophils # (A) 0.4 k/uL (0-0.7); Eosinophils % (A) 5 %; HCT 41.8 % (39.0-53.0); Lymphocytes # (A) 2.7 k/uL (1.0-4.8); Lymphocytes % (A) 32 %; MCH 30.9 pg (25.0-35.0); MCHC 33.4 g/dL (31.0-37.0); MCV 92.5 fL (80.0-100.0); Mean Platelet Volume 7.6; Monocytes # (A) 0.5 k/uL (0-1.0); Monocytes % (A) 6 %; Neutrophils # (A) 4.5 k/uL (1.3-7.7); Neutrophils % (A) 55 %; Platelet Count 200 k/uL (150-450); RBC 4.52 m/uL (4.30-5.90); RDW 14.5 % (11.5-15.5); WBC 8.2 k/uL (3.8-10.6)
[2022-11-13 08:21] LABS: African American GFR (CKD) 60 (>60 ml/min/1.73 sqM); Anion Gap 6 mmol/L; Blood Urea Nitrogen 17 mg/dL (9-20); Calcium 9.1 mg/dL (8.4-10.2); Carbon Dioxide 26 mmol/L (22-30); Chloride 104 mmol/L (98-107); Glucose 79 mg/dL (74-99); Non-African American GFR(CKD) 52 (>60 ml/min/1.73 sqM); Potassium 4.2 mmol/L (3.5-5.1); Sodium 136 mmol/L (137-145)
[2022-11-13] MEDS ORDERED: fentaNYL (PF) 50 MCG/ML 2 ML AMP ONE (09:28)
[2022-11-13] MEDS ORDERED: PROPOFOL 10 MG/ML 20 ML VIAL IV ONE (09:28)
[2022-11-13] MEDS ORDERED: MIDAZOLAM 2 MG/2 ML VIAL ONE (09:28)
[2022-11-13] MEDS ORDERED: IOPAMIDOL-370 100ML BTL IVP ONE ×2 (09:44)
[2022-11-13] MEDS ORDERED: LIDOCAINE 1% INJ 10MG/ML (20 ML MDV) ONE (10:00)
[2022-11-13] MEDS ORDERED: LIDOCAINE 1% INJ 10MG/ML (20 ML MDV) SQ ONE ×2 (10:18→10:25)
[2022-11-13] MEDS ORDERED: IOPAMIDOL-370 100ML BTL INJ ONE ×2 (11:00)
[2022-11-13] MEDS ORDERED: VANCOMYCIN 1,000 MG in SODIUM CHLORIDE 0.9% 250 ML IVPB STA (12:39)
[2022-11-13] MEDS ORDERED: ACETAMINOPHEN TAB 325 MG TAB PO PRN (14:02)
[2022-11-13] MEDS ORDERED: ACETAMINOPHEN IV (For NPO) 1,000 MG in EMPTY BAG 1 BAG IVPB ONE (14:02)
[2022-11-13] MEDS: METOPROLOL SUCCINATE (ER) 50 MG TAB.ER.24H PO SCH (15:19)
[2022-11-13] MEDS: lisinopriL 10 MG TAB PO SCH (21:03)
[2022-11-14 07:34] VITALS: BP 160/88; PULSE 58; TEMP 98.4
[2022-11-14] MEDS ORDERED: ASPIRIN 81 MG PO SCH (09:00)
--- NOTE | 2022-11-14 09:11 | XR ---
EXAMINATION TYPE: XR chest 1V portable DATE OF EXAM: 11/14/2022 7:05 AM COMPARISON: Chest radiographs from 03/14/2022 TECHNIQUE: XR chest 1V portable Frontal view of the chest. CLINICAL INDICATION:Male, 57 years old with history of Lead placement check; FINDINGS: Lungs/Pleura: There is flattening of the diaphragm with increased lucency of the lungs. No evidence o f pneumothorax, pleural effusion or focal consolidation. Pulmonary vascularity: Unremarkable. Heart/mediastinum: Cardiomediastinal silhouette is unremarkable. Three lead cardiac conduction device overlying the left hemithorax with lead tips projecting over the right ventricle, right atrium and c oronary sinus. Musculoskeletal: No acute osseous pathology. IMPRESSION: * Cardiac conduction device with leads in appropriate position. No evidence for pneumothorax. * COPD changes.
[2022-11-14] MEDS: METOPROLOL SUCCINATE (ER) 50 MG TAB.ER.24H PO SCH (09:34)
[2022-11-14] MEDS: lisinopriL 10 MG TAB PO SCH (09:34)
--- NOTE | 2022-11-14 10:32 | P.DS ---
Providers Attending physician: Cj Ashley Primary care physician: [facility] Course: Patient is resting comfortably in bed ICD site is healing well Mild tenderness No smoking is no hematoma Heart sounds are normal Breath sounds are clear Blood pressure mildly elevated this morning but previous blood pressures are normal Impression Congenital heart disease status post VSD repair with open heart surgery patch repair of the VSD History of sustained monomorphic ventricular tachycardia History of sinus bradycardia and unable to use even average doses of beta blockers Prolonged DC interval at baseline with intermittent third-degree heart block consistent with a septal patch/septal scar related to the VSD repair Symptomatic third-degree heart block Anticipated RV pacing percentage greater than 40% in the future Underlying right bundle branch block Cardio myopathy ejection fraction 40% Status post biventricular ICD implantation ICD for secondary prevention of sudden cardiac / history sustained symptomatic monomorphic VT/ congenital heart disease with scar Indication for biventricular device because of intermittent complete heart block AV node disease which is severe and anticipated RV percentage greater than 40% High DFTs yesterday between 24-30 J despite the fact that his ejection fraction was 40% 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 Increase metoprolol to 50 mg daily Further maximization of beta blockers Defibrillation level testing after 3-4 months once again on maximal beta blockers and heart failure therapy Continue lisinopril and baby aspirin Plan - Discharge Summary Discharge Rx Participant: No New Discharge Prescriptions: New Metoprolol Succinate [Toprol XL] 50 mg PO DAILY #90 tab Discontinued Metoprolol Tartrate [Lopressor] 12.5 mg PO BID #60 tab No Action lisinopriL [Zestril] 10 mg PO BID #30 tab Aspirin 81 mg PO DAILY Discharge Medication List lisinopriL [Zestril] 10 mg PO BID #30 tab 03/19/22 [Rx] Aspirin 81 mg PO DAILY 08/05/22 [History] Metoprolol Succinate [Toprol XL] 50 mg PO DAILY #90 tab 11/13/22 [Rx] Follow up Appointment(s)/Referral(s): Cj Ashley MD [STAFF PHYSICIAN] - 1 Week Patient Instructions/Handouts: Moderate Sedation (DC), Implantable Cardioverter Defibrillator (DC) Activity/Diet/Wound Care/Special Instructions: PATIENT EDUCATION MATERIAL Instructions following a heart rhythm device implant. 1. Keep dressing DRY for 5 DAYS. You may cover the area with Saran or Cling Wrap, prior to a shower. 2. The dressing will be removed in the Device Clinic at [facility]. Absorbable sutures were used to close the wound. 3. Avoid raising the left arm above the shoulder level. 4 week restriction 4. Avoid arm movements, like backscratching, rubbing the head, or pulling on a cord. 4 weeks restriction 5. Gentle range of motion movements of the shoulder, closest to the incision should be performed to avoid a frozen shoulder. (Pendulum exercises of the shoulder) 6. The opposite arm may be used freely. 7. Avoid driving for 7 days. 8. Avoid activities such as golfing, swimming, weed whacking, lifting more than 10 pounds weight, bowling, gymnastics and weight training/lifting. (6 weeks restriction) 9. Activities such as wood chopping with an axe, pull-ups in the gymnasium, power lifting, arc-welding, being close to home induction cooktops will always be a problem. 10. Arm sling is only a reminder not to raise the arm above the head. You do not need to keep the arm completely immobilized. Your free to move the arm and use it and for normal activities. 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
--- NOTE | 2022-11-25 17:43 | P.EPPROC ---
- EP Procedure Note Electrophysiology Procedure Note: Diagnosis Sinus Bradycardia Paroxysmal AV block, third-degree heart block, symptomatic standard dual-chamber ICD will result in RV pacing >40% Sustained monomorphic ventricular tachycardia, symptomatically Congenital heart disease with a patch on the VSD/scar in the ventricle septum Wide QRS right bundle branch block pattern Baseline prolonged MT interval of 238 ms Biventricular ICD implantation for sick and prevention of sudden cardiac and preservation of LV systolic function with biventricular pacing Procedure LV/ biventricular ICD implant implantation Defibrillation level testing Increased procedures services Details Patient was brought to the EP lab in a fasting state. Written informed consent was obtained prior to the procedure. Conscious sedation provided by anesthesia team IV antibiotics administered. Local anesthesia administered. A 4 cm incision made in the pectoral area. Subfascial pocket made. Venous access obtained Venous sheaths placed. Leads placed in the right heart. First the LV lead positioning was performed. The Emile sinus was cannulated. The distal coronary sinus communicated with the innominate vein. There was a paucity of lateral veins did a large anterior lateral LV vein was targeted. However LV lead placement was difficult even though cannulation of this vein and passage of an angioplasty wire was easily. The lead was repeatedly loop backwards into the main coronary sinus body.. After multiple attempts with different sheaths positions the lead was positioned distally in this tributary. The proximal leads were targeted for LV pacing. Next ICD lead was positioned. First the RV apex was targeted to avoid the mid septum since there is a VSD scar patch there however after screwing the lead, a reversal in the current of injury was noted with loss of capture. The lead was unscrewed carefully. Patient's blood pressure remains stable The LV septum was mapped. The mid RV septum was avoided because signals were very diminutive. The region above this scar tissue was targeted with good signals. However later when DFT testing was performed the defibrillation level test revealed high values. 10 J as well as 20 J shock failed in the Total and the anodal vectors. A 30 J failed followed by a 30 J success in the cathodal configuration There was a question about the integrity of the device and therefore a new by ventricle ICD was implanted However since the defibrillation level was high, the septal position of the ICD lead was not accepted. The lead was unscrewed and repositioned in the RV apex. However DFT testing was successfully performed with a new defibrillator generator but the DFTs were still high with a type II conversion with a 25 J shock in the cathodal vector VF was appropriately detected at least sensitivity Atrial lead position the right atrial appendage. Pacing threshold 1 warted 0.5 ms, P waves 1.9 mV, pacing impedance 540 ohms RV lead position in the RV apex. 0.75 V at 0.5 ms, R waves 6.4 mV and pacing impedance of 580 ohms LV lead positioned in the LV vein, L3-RV coil, 0.75 V at 0.5 ms pacing impedance of 380 ohms and high-voltage impedance of 69 ohms, RV to can Biventricular ICD device connected to the leads and placed in the subfascial pocket. 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 Avoid amiodarone given the high DFTs Defibrillation level testing after 3 months
== END 2022-11-14 12:18 | disposition home or self-care (01) ==
LOC: CATHEP 07:34 → 6NMEDSUR 14:00 → CATHEP 11-14 12:18
PROVIDERS: ATTEND Internal Medicine Clinical Cardiac Electrophysiology
DX: I50.9 Heart failure, unspecified (principal); Z87.74 Personal history of (corrected) congenital malformations of heart and circulatory system; I42.9 Cardiomyopathy, unspecified; I45.10 Unspecified right bundle-branch block; Z79.899 Other long term (current) drug therapy
CPT/HCPCS: 93641; 33225; 33249; 80048; 85025; 71045; C1882; C1898; C1900; C1777; J2250; J3370; J0690; J2001; J3010; J0131; J2704; Q9967

== ENCOUNTER → 2023-05-15 | Outpatient (CLI) | payer OTHER ==
--- NOTE | 2023-05-15 10:42 | CTL ---
EXAMINATION TYPE: CT Low Dose Lung DATE OF EXAM: 05/15/2023 10:11 AM CLINICAL INDICATION:Male, 58 years old with history of I73.9 PAD; personal history of nicotine depend ence , history of tobacco use. COMPARISON: None. TECHNIQUE: Multiple axial non-contrast scans were obtained from approximately the lung apices through the upper abdomen. Coronal and sagittal reformatted images were obtained. Low dose technique was uti lized. CT DLP: 68 mGycm, Automated exposure control for dose reduction was used. CT Contrast: Contrast used: None Oral contrast used: None FINDINGS: ======== Lack of intravenous contrast and low dose technique limits the evaluation of the vascular and soft ti ssue structures. LUNGS: No evidence of pulmonary fibrosis. No evidence of focal consolidation, pneumothorax or pleural effusion. Centrilobular emphysema changes. Nodules: RUL: None. RML: None. RLL: None. AURORA: None. LLL: None. AIRWAY: Patent and unremarkable. HEART: Size within normal limits. Atherosclerosis of the coronary arteries. Is EDV-terminating in the right ventricle and right atrium. MEDIASTINUM: No gross evidence of adenopathy. VASCULATURE: No aortic aneurysm. MUSCULOSKELETAL: Mild disc degeneration changes are present throughout the thoracolumbar spine. SOFT TISSUES/LYMPH NODES: Unremarkable. Left chest wall cardiac conduction device. LOWER NECK: No significant findings. UPPER ABDOMEN: No significant findings. IMPRESSION: 1. No clinically significant pulmonary nodules. 2. Moderate to severe emphysema. CT LUNG RAD AND CT CHEST RECOMMENDATION: Lung-Rad 1 Negative: Continue annual screening with LDCT in 12 months. S Modifier (other clinically significant findings): None Recommend smoking cessation (if current smoker), or continuation of smoking cessation (if prior smoke r). Annual screening for lung cancer with low-dose computed tomography is recommended in adults ages 55 to 77 years who have a 30 pack-year smoking history and currently smoke or have quit within the pa st 15 years. Screening should be discontinued once a person has not smoked for 15 years or develops a health problem that substantially limits life expectancy or the ability or willingness to have curat preet lung surgery. Lung rads 2021 [email or web address]
--- NOTE | 2023-05-15 13:21 | US ---
EXAMINATION TYPE: US arterial LE single level DATE OF EXAM: 05/15/2023 9:48 AM CLINICAL INDICATION: Male, 58 years old with history of I73.9 PAD; Patient states no symptoms History of: Smoker: Current Hypertension: Yes Diabetic: No Hyperlipidemia: Yes TIA/CVA: No DC: Yes Doppler Waveforms: Right: Multiphasic Left: Multiphasic Right Brachial Pressure: 111 Left Brachial Pressure: 116 Ankle-Brachial Indices: Right: 1.03 Left: 1.12 IMPRESSION: Normal bilateral MARIANNA.
== END | disposition home or self-care (01) ==
LOC: RADUSWWP 09:25
PROVIDERS: ATTEND Family Medicine
DX: I73.9 Peripheral vascular disease, unspecified (principal); J43.9 Emphysema, unspecified; E78.5 Hyperlipidemia, unspecified; I10 Essential (primary) hypertension; F17.200 Nicotine dependence, unspecified, uncomplicated
CPT/HCPCS: 71271; 93922

== ENCOUNTER → 2024-07-07 | Outpatient (CLI) | payer OTHER ==
--- NOTE | 2024-07-07 18:50 | CTL ---
EXAMINATION TYPE: CT Low Dose Lung DATE OF EXAM: 07/07/2024 4:38 PM COMPARISON: Previous CT low-dose lung cancer screening study 05/15/2023. CLINICAL INDICATION: Male, 59 years old with history of Z12.2 SCREENING LUNG CA F17.210 CURRENT SMOKE R; 1 pack a day for 35 years, history of tobacco use. TECHNIQUE: Multiple axial non-contrast scans were obtained from approximately the lung apices through the upper abdomen. Coronal and sagittal reformatted images were obtained. Low dose technique was uti lized. MIP were created on a separate workstation and submitted for review. CT DLP: 62.8 mGycm, Automated exposure control for dose reduction was used. CT Contrast: FINDINGS: Heart size is within normal limits. No pericardial effusion. Left chest wall cardiac ICD device with leads in the region of the right ventricle, right atrium and coronary sinus. Calcified atheroscleroti c disease of the thoracic aorta without aneurysmal dilatation. Main pulmonary artery is normal in cheng iber. Coronary artery calcifications. No pathologically subtle lymphadenopathy. Epiglottic axillary l ymphadenopathy. Imaging through the lungs demonstrates extensive centrilobular emphysema, most pronounced in the lung apices. Demonstration bronchial wall thickening and scattered regions of mucous plugging in the righ t middle and lower lobes. No acute focal consolidation. No pleural effusion or pneumothorax. No suspi cious or enlarging pulmonary nodule. Partially visualized upper abdomen demonstrates no acute pathology. Thoracic spine degenerative hernandez es. IMPRESSION: No new suspicious or enlarging pulmonary nodule. CT LUNG RAD AND CT CHEST RECOMMENDATION: Lung-Rad 2 Benign Appearance or Behavior: Continue annual sc reening with LDCT in 12 months. S Modifier (other clinically significant findings): None Recommend smoking cessation (if current smoker), or continuation of smoking cessation (if prior smoke r). Annual screening for lung cancer with low-dose computed tomography is recommended in adults ages 55 to 77 years who have a 30 pack-year smoking history and currently smoke or have quit within the pa st 15 years. Screening should be discontinued once a person has not smoked for 15 years or develops a health problem that substantially limits life expectancy or the ability or willingness to have curat preet lung surgery. Lung rads 2021 [email or web address] [email or web address], , 07/07/2024 6:47 PM
== END | disposition home or self-care (01) ==
LOC: RADCTMAIN 10:52
PROVIDERS: ATTEND Family Medicine
DX: Z12.2 Encounter for screening for malignant neoplasm of respiratory organs (principal); F17.210 Nicotine dependence, cigarettes, uncomplicated
CPT/HCPCS: 71271